=== PATIENT | female | born 1985 | race Two or more races ===

== ENCOUNTER 2019-08-12 15:02 | Outpatient (CLI) | payer MEDICARE | END 2019-08-12 23:59 | disposition home or self-care (01) | LOC: MSC 15:02 | PROVIDERS: ATTEND Internal Medicine | DX: F31.9 Bipolar disorder, unspecified (principal); F20.0 Paranoid schizophrenia | CPT/HCPCS: J1631 ×3; 96372 ==

== ENCOUNTER 2019-11-11 14:39 | Outpatient (CLI) | payer MEDICAID, MEDICARE | END 2019-11-11 23:59 | disposition home or self-care (01) | LOC: MSC 14:39 | PROVIDERS: ATTEND Internal Medicine | DX: F31.9 Bipolar disorder, unspecified (principal); F20.0 Paranoid schizophrenia | CPT/HCPCS: J1631 ×3; 96372 ==

== ENCOUNTER 2020-02-18 15:08 | Outpatient (CLI) | payer MEDICARE | END 2020-02-18 23:59 | disposition home or self-care (01) | LOC: MSC 15:08 | PROVIDERS: ATTEND Internal Medicine | DX: F20.0 Paranoid schizophrenia (principal); F31.9 Bipolar disorder, unspecified; Z79.899 Other long term (current) drug therapy | CPT/HCPCS: J1631 ×3; 96372 ==

== ENCOUNTER 2020-03-20 10:43 | Outpatient (CLI) | payer MEDICARE | END 2020-03-20 23:59 | disposition home or self-care (01) | LOC: MSC 10:43 | PROVIDERS: ATTEND Internal Medicine | DX: F20.0 Paranoid schizophrenia (principal); F31.9 Bipolar disorder, unspecified; Z79.899 Other long term (current) drug therapy | CPT/HCPCS: 96372; J1631 ==

== ENCOUNTER 2020-10-11 10:51 | Outpatient (CLI) | payer MEDICARE | END 2020-10-11 23:59 | disposition home or self-care (01) | LOC: MSC 10:51 | PROVIDERS: ATTEND Internal Medicine | DX: R73.9 Hyperglycemia, unspecified (principal); F31.9 Bipolar disorder, unspecified; F20.0 Paranoid schizophrenia ==

== ENCOUNTER 2020-10-13 10:43 | Outpatient (CLI) | payer MEDICARE ==
[2020-10-13 11:40] LABS: BASOPHILS % (AUTO) 0.5 % (0.0-2.0); HEMATOCRIT 37 % (33-45); HEMOGLOBIN 12.5 g/dL (11.5-14.8); LYMPHOCYTES # (AUTO) 2.7 K/uL (0.8-4.8); MEAN CORPUSCULAR HGB CONC 34 g/dl (31.0-36.0); MEAN CORPUSCULAR VOLUME 88 fL (82-100); MONOCYTES # (AUTO) 0.6 K/uL (0.1-1.30); NEUTROPHILS % (AUTO) 47.5 % (43.0-81.0); PLATELET COUNT (AUTO) 249 K/uL (150-450); RED BLOOD CELL COUNT(AUTO) 4.17 MIL/uL (4.0-5.2); WHITE BLOOD COUNT (AUTO) 6.3 K/uL (4.3-11.0)
[2020-10-13 12:07] LABS: ALBUMIN 3.3 g/dL (3.4-5.0); BILIRUBIN,DIRECT 0.1 mg/dL (0.0-0.2); BILIRUBIN,TOTAL 0.3 mg/dL (0.2-1.0); CALCIUM, SERUM 8.3 mg/dL (8.5-10.1); CREATININE 0.6 mg/dL (0.6-1.3); POTASSIUM 3.6 mmol/L (3.5-5.1); TOTAL PROTEIN, SERUM 7.8 g/dL (6.4-8.2)
[2020-10-13 12:25] LABS: THYROID STIMULATING HORMONE 6.047 uIU/mL (0.358-3.74)
== END 2020-10-13 23:59 | disposition home or self-care (01) ==
LOC: LAB 10:43
PROVIDERS: ATTEND Internal Medicine
DX: Z00.00 Encounter for general adult medical examination without abnormal findings (principal); E78.00 Pure hypercholesterolemia, unspecified; Z79.899 Other long term (current) drug therapy
CPT/HCPCS: 36415; 80048-TC; 80076-TC; 82728-TC; 83540-TC; 84443-TC; 85025-TC